=== PATIENT | female | born 1965 | race Hispanic/Latino ===

== ENCOUNTER 2018-01-17 14:25 | Outpatient (CLI) | payer OTHER | END 2018-01-17 14:26 | disposition home or self-care (01) | LOC: BICMAMMO 14:25 | PROVIDERS: ATTEND Internal Medicine Rheumatology | DX: Z12.31 Encounter for screening mammogram for malignant neoplasm of breast (principal); Z13.820 Encounter for screening for osteoporosis; R92.1 Mammographic calcification found on diagnostic imaging of breast; Z78.0 Asymptomatic menopausal state; Z80.3 Family history of malignant neoplasm of breast | CPT/HCPCS: 77063; 77067; 77080 ==

== ENCOUNTER 2018-08-05 07:37 | Outpatient (CLI) | payer BC ==
--- NOTE | 2018-08-05 09:33 | MRI ---
MRI OF THORACIC SPINE WITHOUT CONTRAST: DATE: 08/05/2018. COMPARISON: None. HISTORY: Thoracic radiculitis, mid back pain and right leg pain. TECHNIQUE: Multiplanar, multisequence MR imaging of the thoracic spine obtained without contrast. FINDINGS: The sagittal STIR imaging demonstrates no focal area of osseous marrow edema. The thoracic vertebral body height and alignment appears normal. There is no focal area of abnormal signal intensity identified within the thoracic cord. There is a benign hemangioma within the T7 vertebral body. T1-2: Unremarkable. T2-3: Unremarkable. T3-4: Unremarkable. T4-5: Unremarkable. T5-6: Unremarkable. T6-7: Unremarkable. T7-8: Unremarkable. T8-9: There is disk space narrowing, disk desiccation, and mild disk bulge with partial effacement o f the ventral thecal sac. No significant central canal or neural foraminal stenosis. T9-10: Minimal disk bulge with no central canal or neural foraminal stenosis. T10-11: Unremarkable. T11-12: Unremarkable. T12-L1: Unremarkable. 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 POS: AZAEL
== END 2018-08-05 07:38 | disposition home or self-care (01) ==
LOC: SCSMRI 07:37
PROVIDERS: ATTEND Family Medicine
DX: M47.24 Other spondylosis with radiculopathy, thoracic region (principal); M51.24 Other intervertebral disc displacement, thoracic region
CPT/HCPCS: 72146

== ENCOUNTER 2018-11-05 10:54 | Outpatient (CLI) | payer BC ==
--- NOTE | 2018-11-05 11:58 | MRI ---
Exam: MRI cervical spine without contrast HISTORY: Neck stiffness. Pain in both shoulders and hands, times a few months. Finger numbness.. COMPARISON: None FINDINGS: Appropriate T1 marrow signal intensity of the cervical vertebra. Cervical spine vertebral body heigh t is maintained. No fracture. No significant STIR hyperintensity to suggest vertebral body edema or ligamentous injury. Visualized brain parenchyma, cervicomedullary junction and cervical cord and the upper thoracic cord are normal size and signal intensity C2-C3: No significant central canal stenosis or neural foraminal narrowing C3-C4: No significant central canal stenosis. Minimal central disc protrusion. Minimal bilateral fora kamron narrowing due to uncovertebral hypertrophy. C4-C5: No significant central canal stenosis or neural foraminal narrowing. C5-C6: Generalized disc bulge with a left paracentral component. Mild mass effect upon the ventral th ecal sac and left paracentral cord. No cord hyperintensity. Mild central canal stenosis. Bilaterally, neural foramina are patent. C6-C7: No significant central canal stenosis or neural foraminal narrowing C7-T1: No significant central canal stenosis. Neural foramina are patent. IMPRESSION: Mild generalized disc disease at C5-C6. Transcribed Date/Time: 11/05/2018 12:35 PM
== END 2018-11-05 10:55 | disposition home or self-care (01) ==
LOC: SCSMRI 10:54
PROVIDERS: ATTEND Family Medicine
DX: M54.12 Radiculopathy, cervical region (principal); G25.9 Extrapyramidal and movement disorder, unspecified; M50.322 Other cervical disc degeneration at C5-C6 level
CPT/HCPCS: 72141

== ENCOUNTER 2019-01-08 13:52 | Outpatient (CLI) | payer BC ==
--- NOTE | 2019-01-08 14:19 | RAD ---
CERVICAL SPINE RADIOGRAPH 2 VIEWS: Date: 01/08/19 INDICATION: Cervical radiculopathy. FINDINGS: There is mild degenerative change notably at the lower cervical spine. Mild multilevel facet sclerosi s is seen. Straightening of the cervical spinal curvature without malalignment evident. IMPRESSION: 1. Mild degenerative change of the cervical spine. 2. No compression fracture. POS: C
== END 2019-01-08 13:53 | disposition home or self-care (01) ==
LOC: BICRAD 13:52
PROVIDERS: ATTEND Surgery
DX: M47.22 Other spondylosis with radiculopathy, cervical region (principal)
CPT/HCPCS: 72040

== ENCOUNTER 2021-02-01 10:05 | Outpatient (CLI) | payer BC | END 2021-02-01 10:06 | disposition home or self-care (01) | LOC: SCSRAD 10:05 | PROVIDERS: ATTEND Physician Assistant | DX: R06.02 Shortness of breath (principal); R91.8 Other nonspecific abnormal finding of lung field | CPT/HCPCS: 71046 ==

== ENCOUNTER 2021-03-08 15:13 | Outpatient (CLI) | payer BC | END 2021-03-08 15:14 | disposition home or self-care (01) | LOC: SCSRAD 15:13 | PROVIDERS: ATTEND Physician Assistant | DX: R06.02 Shortness of breath (principal) | CPT/HCPCS: 71046 ==

== ENCOUNTER 2022-02-03 07:37 | Outpatient (CLI) | payer BC | END 2022-02-03 07:38 | disposition home or self-care (01) | LOC: SCSMRI 07:37 | PROVIDERS: ATTEND Nurse Practitioner Family | DX: M48.062 Spinal stenosis, lumbar region with neurogenic claudication (principal); M47.817 Spondylosis without myelopathy or radiculopathy, lumbosacral region; M51.27 Other intervertebral disc displacement, lumbosacral region; Z98.1 Arthrodesis status | CPT/HCPCS: 72120; 72148 ==

== ENCOUNTER 2023-07-16 10:57 | Day surgery (SDC) | payer BC ==
[2023-07-12 16:00] VITALS: BMI 34.0
[2023-07-16] MEDS ORDERED: Vancomycin 1 GM VIAL ONE (11:44)
[2023-07-16] MEDS ORDERED: Thrombin 5000 UNITS/5 ML VIAL ONE (11:44)
[2023-07-16] MEDS ORDERED: Sodium Chloride 0.9% 100 ML ONE (11:46)
[2023-07-16] MEDS ORDERED: CEFAZOLIN 2 GM VIAL ONE (11:46)
[2023-07-16] MEDS ORDERED: Fentanyl 250 MCG/5 ML VIAL ONE (12:48)
[2023-07-16] MEDS ORDERED: PROPOFOL 20 ML ONE (12:48)
[2023-07-16] MEDS ORDERED: Lidocaine 1% PF 5 ML VIAL ONE (12:51)
[2023-07-16] MEDS ORDERED: Rocuronium Bromide 10 MG/ML (10ML VIAL) ONE (12:51)
[2023-07-16] MEDS ORDERED: Ondansetron PF 4 MG/2 ML Vial IVP PRN (13:25)
[2023-07-16] MEDS ORDERED: Milk Of Magnesia 30 ML UDCUP PO PRN (13:25)
[2023-07-16] MEDS ORDERED: Acetaminophen 325 MG TAB PO PRN (13:25)
[2023-07-16] MEDS ORDERED: diphenhydrAMINE 25 MG CAP PO PRN (13:25)
[2023-07-16] MEDS ORDERED: Ketorolac Tromethamine 30 MG (1 mL) VIAL ONE (13:30)
[2023-07-16] MEDS ORDERED: Dexamethasone 20 MG/5 ML VIAL ONE (13:30)
[2023-07-16] MEDS ORDERED: Ondansetron PF 4 MG/2 ML Vial ONE (13:30)
[2023-07-16] MEDS ORDERED: clonazePAM 1 MG TAB PO PRN (13:40)
[2023-07-16] MEDS ORDERED: ePHEDrine Sulfate 50 MG/10 ML VIAL ONE (13:54)
[2023-07-16] MEDS ORDERED: Phenylephrine 10 MG/ML VIAL ONE (13:59)
[2023-07-16] MEDS ORDERED: Sodium Chloride 0.9% 250 ML 250 ML ONE (13:59)
[2023-07-16] MEDS ORDERED: SUGAMMADEX SODIUM 200 MG/2 ML VIAL ONE (15:05)
[2023-07-16] MEDS ORDERED: HYDROmorphone 2 MG/ML VIAL ONE (15:42)
[2023-07-16] MEDS ORDERED: fentaNYL 50 mcg/mL 1 mL Vial ONE ×2 (16:27→16:36)
[2023-07-16] MEDS: Sodium Chloride 0.9% 1,000 ML IV SCH (17:37)
[2023-07-16] MEDS: Baclofen 10 MG TAB PO SCH (19:47)
[2023-07-16] MEDS: DULoxetine 60 MG CAP PO SCH (19:48)
[2023-07-16] MEDS: Gabapentin 100 MG CAP PO SCH (19:48)
[2023-07-16] MEDS: HYDROcodone/Acetaminophen 7.5/325 mg Tablet PO PRN (19:48)
[2023-07-16] MEDS: CEFAZOLIN 2 GM in Sodium Chloride 0.9% 100 ML IVPB SCH (19:49)
[2023-07-16] MEDS: Morphine 2 MG/ML VIAL SLOW IVP PRN (21:29)
[2023-07-17] MEDS: Cyclobenzaprine 10 MG TAB PO PRN (04:00)
[2023-07-17] MEDS: Acetaminophen/Codeine 30-300mg Tablet PO PRN (06:22)
[2023-07-17 07:45] VITALS: BP 116/70; TEMP 97.7
[2023-07-17] MEDS: Folic Acid 1 MG TAB PO SCH (09:00)
[2023-07-17] MEDS: Cholecalciferol 1,000 UNITS (25 MCG) TAB PO SCH (09:01)
== END 2023-07-17 14:28 | disposition home or self-care (01) ==
LOC: SDC 10:57 → MSONC 17:10 → SDC 07-17 14:28
PROVIDERS: ATTEND Surgery
PROC: 01NB0ZZ Release Lumbar Nerve, Open Approach (ICD-10-PCS; principal; 2023-07-16)
DX: M51.26 Other intervertebral disc displacement, lumbar region (principal); M48.062 Spinal stenosis, lumbar region with neurogenic claudication; Z91.018 Allergy to other foods; Z88.2 Allergy status to sulfonamides; Z88.0 Allergy status to penicillin
CPT/HCPCS: J1100; J1170; J1885; J2272; J2371; J2405; J2704; J3010; J3370; J3490; J7050